=== PATIENT | female | born 1965 | race Caucasian/White ===

== ENCOUNTER 2017-09-29 16:56 | Emergency (ER) | payer BC ==
--- NOTE | 2017-09-29 18:51 | EDM.PDOC ---
ED HPI GENERAL MEDICAL PROBLEM - General Chief Complaint: Skin Complaint Stated Complaint: BURNING OF LIPS Time Seen by Provider: 09/29/17 18:50 Source of Information: Reports: Patient - History of Present Illness INITIAL COMMENTS - FREE TEXT/NARRATIVE: Dinah is a 51yo female here with sensation of burning and pain to her lips. Started 5 days ago with burning, redness, she has noted small tiny blisters forming to the corners of her mouth as of yesterday. She has hx of recurrent "impetigo" and feels this is coming on again. 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 Joshua f/c/s, n/v/d. Ho headache, achiness or fatigue. He does have hx of anemia in the past. She has been menstruating off an on for 2 months and states "I think I am menopausal". Onset: Gradual Duration: Day(s): (5) Location: Reports: Face Quality: Reports: Burning Face Pain Score (Numeric/FACES): 5 - Related Data Allergies Allergy/AdvReac Type Severity Reaction Status Date / Time No Known Allergies Allergy Verified 09/29/17 17:41 Home Meds: Home Meds Mupirocin [Centany] 1 dose TOP ASDIRECTED 09/29/17 [History] ED ROS GENERAL - Review of Systems Review Of Systems: See Below Constitutional: Reports: Fatigue. Denies: Fever, Chills, Malaise HEENT: Reports: Other (Pain burning and rash to her lips). Denies: Dental Pain , Ear Pain, Eye Pain, Rhinitis, Sinus Problem, Throat Pain Respiratory: Reports: No Symptoms Cardiovascular: Reports: No Symptoms GI/Abdominal: Reports: No Symptoms Musculoskeletal: Reports: No Symptoms Skin: Reports: Other (Burning erythematous rash to her lips and surrounding lips ) Hematologic/Lymphatic: Reports: Anemia (History of anemia in the past due to menses) ED EXAM, SKIN/RASH Exam: See Below Exam Limited By: No Limitations General Appearance: Alert, WD/WN, No Apparent Distress Ears: Normal External Exam, Hearing Grossly Normal Nose: Normal Inspection Throat/Mouth: Normal Teeth, Normal Gums, Normal Oropharynx, Normal Voice, No Airway Compromise, Other (Lips are erythematous with perioral erythema, chelitis is present in the corners of the mouth bilaterally, there are very fine vesicles forming to the left upper lateral vermilion border, no drainage but feels this is consistent with impetigo) Head: Atraumatic, Normocephalic Neck: Normal Inspection, Supple, Other (No adenopathy noted) Respiratory/Chest: No Respiratory Distress, Lungs Clear, Normal Breath Sounds Cardiovascular: Normal Peripheral Pulses, Regular Rate, Rhythm (Female) Exam: Deferred Rectal (Female) Exam: Deferred Extremities: Normal Inspection, Normal Capillary Refill Neurological: Alert, Oriented, Normal Cognition, Normal Gait Psychiatric: Normal Affect, Normal Mood Skin: Warm, Dry, Intact Location, Skin: Other (See above under Throat and mouth exam) Lymphatic: No Adenopathy Course - Vital Signs Last Recorded V/S: Last Vital Signs Temp 98.2 F 09/29/17 17:38 Pulse 89 09/29/17 17:38 Resp 18 09/29/17 17:38 BP 126/91 H 09/29/17 17:38 Pulse Ox 100 09/29/17 17:38 Departure - Departure Time of Disposition: 19:01 Disposition: Home, Self-Care 01 Condition: Good Clinical Impression: Cheilitis, Impetigo - Discharge Information Instructions: Iron tablets, capsules, extended-release tablets, Impetigo, Adult Referrals: PCP,None [Primary Care Provider] - Forms: ED Department Discharge Additional Instructions: Mupirocin ointment to area 3 times daily as needed. Take antibiotic as instructed - doxycycline 100mg twice daily; instymed rx Push fluids Recommend iron supplement once daily; consider checking hemoglobin and iron levels for anemia with your primary care provider If not better by 2-3 days follow up with your primary care provider.
== END 2017-09-29 19:20 | disposition home or self-care (01) ==
LOC: JD.ED 16:56
DX: K13.0 Diseases of lips (principal); L01.00 Impetigo, unspecified
CPT/HCPCS: 99283

== ENCOUNTER 2018-10-22 09:56 | Emergency (ER) | payer OTHER, BC ==
--- NOTE | 2018-10-22 11:02 | CT ---
CT cervical spine Technique: Multiple axial sections were obtained from above C1 inferiorly to the bottom of T2. Reconstructed sagittal and coronal images were reviewed. Comparison: Previous radiographic cervical spine study of 08/07/18 as well as previous MRI cervical spine study of 08/20/18. Findings: Mild disc space narrowing noted at C5-C6. Minimal spondylolisthesis noted at C4-C5 and C5-C6 compatible with degenerative apophyseal change. Other degenerative apophyseal change is scattered throughout the cervical spine which is worse on the right side within the upper cervical spine. Severe disc space narrowing is noted C6-C7 with prominent antral osteophytes and small posterior osteophytes which project into both neural foramina. Mild right-sided neural foraminal stenosis noted at C6-C7 with moderate left-sided neural foraminal stenosis being seen. Degenerative spurring from the apophyseal joint causes mild left-sided neural foraminal stenosis at C5-C6. Other neural foramina are felt to be patent. No bony central canal stenosis is seen. No fracture is identified. Impression: 1. Degenerative change as noted above. No acute fracture is seen on CT study of the cervical spine. Diagnostic code #2
--- NOTE | 2018-10-22 11:02 | CT ---
Head CT Technique: Multiple axial sections through the brain were obtained. Intravenous contrast was not utilized. Comparison: Prior head CT study of 08/11/18. Findings: Ventricles along with basal cisterns and sulci over the convexities are within normal limits for the patient's age. No abnormal parenchymal densities are seen. No evidence of intracranial hemorrhage. No midline shift or mass effect is seen. Bone window settings were reviewed which show no acute calvarial abnormality. Visualized sinuses are clear. Impression: 1. Nothing acute is appreciated on noncontrast head CT study. No significant change from previous exam is seen. Diagnostic code #1
--- NOTE | 2018-10-22 11:11 | CR ---
Lumbar spine: AP, lateral and coned-down lateral views centered to the lumbosacral junction were obtained. Comparison: No previous lumbar spine imaging. Moderate posterior disc space narrowing is noted at L5-S1. Moderate diffuse disc space narrowing noted at L1-L2 and L2-L3. Posterior disc space narrowing is noted at L3-L4 and L4-L5. Vertebral body heights are maintained. Mild scattered endplate osteophytes are seen. Mild scoliosis is noted. Pedicles as well as visualized transverse and spinous processes are intact. Sacroiliac joints are within normal limits. No fracture or subluxation is seen. Impression: 1. Degenerative change and slight scoliosis. 2. Nothing acute is appreciated on three-view lumbar spine study. Diagnostic code #2
--- NOTE | 2018-10-22 11:13 | CR ---
Right shoulder: Three views of the right shoulder were obtained. Comparison: No previous right shoulder exam. Acromioclavicular and glenohumeral joints appear within normal limits. No fracture, dislocation or other bony abnormality is appreciated. Impression: 1. Nothing acute is appreciated on right shoulder exam. Diagnostic code #1
--- NOTE | 2018-10-22 11:43 | EDM.PDOC ---
ED HPI GENERAL MEDICAL PROBLEM - General Chief Complaint: Upper Extremity Injury/Pain Stated Complaint: FELL ON ICE MULTIPLE INJURIES Time Seen by Provider: 10/22/18 10:13 Source of Information: Reports: Patient History Limitations: Reports: No Limitations - History of Present Illness INITIAL COMMENTS - FREE TEXT/NARRATIVE: The patient was putting slipped and fell and landed on her right side. She did hit her head when she fell down. She had no LOC. She does have a right sided headache, neck pain, right upper arm pain and low back pain. She denies chest or abdominal pain. Her legs and hips at this time appear fine. Onset: Sudden Duration: Minutes: Location: Reports: Head, Neck, Back, Upper Extremity, Right (upper arm and shoulder) Quality: Reports: Sharp Severity: Moderate Improves with: Reports: Immobilization Worsens with: Reports: Movement Context: Reports: Trauma (Slipped and fell on the ice) Associated Symptoms: Reports: Headaches. 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: Psychiatric History: Reports: Anxiety, Depression, Panic Attack Dermatologic History: Reports: Other (See Below) Other Dermatologic History: impetigo - Past Surgical History GI Surgical History: Reports: Cholecystectomy, Other (See Below) Other GI Surgeries/Procedures: Lap band and lap band revision Female Surgical History: Reports: Section Social & Family History - Family History Family Medical History: Noncontributory Cardiac: Reports: Bypass, Heart Failure, ID, Stent - Tobacco Use Smoking Status *Q: Never Smoker - Caffeine Use Caffeine Use: Reports: Coffee - Recreational Drug Use Recreational Drug Use: No Review of Systems - Review of Systems Review Of Systems: See Below Constitutional: Reports: No Symptoms Eyes: Reports: No Symptoms Ears: Reports: No Symptoms Nose: Reports: No Symptoms Mouth/Throat: Reports: No Symptoms Respiratory: Reports: No Symptoms Cardiovascular: Reports: No Symptoms GI/Abdominal: Reports: No Symptoms Genitourinary: Reports: No Symptoms Musculoskeletal: Reports: Shoulder Pain (right) Skin: Reports: No Symptoms Neurological: Reports: Headache ED EXAM, GENERAL - Physical Exam Exam: See Below Exam Limited By: No Limitations General Appearance: Alert, No Apparent Distress Ears: Normal External Exam Nose: Normal Inspection Head: Other (Tenderness to palpation to the right parietal and temporal region) Neck: Tender Midline Respiratory/Chest: No Respiratory Distress, Lungs Clear, Normal Breath Sounds Cardiovascular: Regular Rate, Rhythm, No Edema, No Murmur GI/Abdominal: Soft, Non-Tender, No Organomegaly, No Mass Back Exam: Other (Pain upon palpation to the low back) Extremities: Other (Pain upon palpation to her right shoulder) Neurological: Alert, Oriented, No Motor/Sensory Deficits Course - Vital Signs Last Recorded V/S: Last Vital Signs Temp 98.2 F 10/22/18 10:00 Pulse 52 L 10/22/18 10:00 Resp 18 10/22/18 10:00 BP 121/82 10/22/18 10:00 Pulse Ox 98 10/22/18 10:00 - Re-Assessments/Exams Free Text/Narrative Re-Assessment/Exam: 10/22/18 11:[address] of her head and cervical spine. I also ordered x-rays of her right shoulder and low back. The x-ray of her low back shows degenerative nino and slight scoliosis but nothing acute is appreciated. Her right shoulder x-ray looked good. The CT of her head shows nothing acute. The CT of her cervical spine shows no acute fracture but she has degenerative changes. She is sore. I will discharge her home. Departure - Departure Time of Disposition: 11:45 Disposition: Home, Self-Care 01 Condition: Good Clinical Impression: Fall Qualifiers: Encounter type: initial encounter Qualified Code(s): W19.XXXA - Unspecified fall, initial encounter Shoulder contusion Qualifiers: Encounter type: initial encounter Laterality: right Qualified Code(s): S40.011A - Contusion of right shoulder, initial encounter Lumbar strain Qualifiers: Encounter type: initial encounter Qualified Code(s): S39.012A - Strain of muscle, fascia and tendon of lower back, initial encounter - Discharge Information *PRESCRIPTION DRUG MONITORING PROGRAM REVIEWED*: Not Applicable *COPY OF PRESCRIPTION DRUG MONITORING REPORT IN PATIENT CHARLI: Not Applicable Referrals: Georgiana Barbosa MD [Primary Care Provider] - 1 Week Additional Instructions: Ice the areas that hurt for 15 minutes 3 times per day for 2 days. Take motrin or aleve for pain. Please return if you are worse.
== END 2018-10-22 11:50 | disposition home or self-care (01) ==
LOC: JD.ED 09:56
DX: S39.012A Strain of muscle, fascia and tendon of lower back, initial encounter (principal); S40.011A Contusion of right shoulder, initial encounter; F41.9 Anxiety disorder, unspecified; F32.9 Major depressive disorder, single episode, unspecified; Z79.899 Other long term (current) drug therapy; Z88.2 Allergy status to sulfonamides; Z88.1 Allergy status to other antibiotic agents; W19.XXXA Unspecified fall, initial encounter
CPT/HCPCS: 70450; 70450-26; 72100; 72100-26; 72125; 72125-26; 73030-26-RT; 73030-RT; 99282; 99284-25